=== PATIENT | female | born 1985 | race Caucasian/White ===

== ENCOUNTER 2020-10-12 16:15 | Observation (INO) | payer OTHER ==
[~2020-10-12] VITALS: Ht 165.1 cm; Wt 88.0 kg
[2020-10-12 16:55] LABS: HEMOGLOBIN 13.1 gm/dl (12.3-15.3); RED BLOOD COUNT 4.28 M/UL (4.00-5.10); WHITE BLOOD COUNT 7.6 K/UL (4.5-11.0)
[2020-10-12 17:24] LABS: BUN/CREATININE RATIO 14 (0-10)
[2020-10-13 07:52] LABS: HEMOGLOBIN 12.3 gm/dl (12.3-15.3)
== END 2020-10-13 13:15 | disposition home or self-care (01) ==
LOC: ER1 16:15 → CDU 20:02 → OB 10-13 00:24
PROVIDERS: Physician Assistant; ADMIT Obstetrics & Gynecology
DX: N93.9 Abnormal uterine and vaginal bleeding, unspecified (principal); F17.210 Nicotine dependence, cigarettes, uncomplicated; Z90.710 Acquired absence of both cervix and uterus; Z20.822 Contact with and (suspected) exposure to COVID-19; Z88.1 Allergy status to other antibiotic agents
CPT/HCPCS: 36415; 80053; 81001; 82550; 82553; 83874; 84484; 85014; 85018; 85025; 87086; 99285; G0378; Q9967; U0002

== ENCOUNTER → 2021-01-24 | Outpatient (CLI) | payer OTHER | LOC: KOH-I 01-23 11:30 | DX: R13.10 Dysphagia, unspecified (principal); E04.2 Nontoxic multinodular goiter | CPT/HCPCS: 76536 ==